=== PATIENT | male | born 1955 | race American Indian/Alaskan Native ===

== ENCOUNTER 2019-05-05 12:48 | Outpatient (CLI) | payer MEDICAID ==
--- NOTE | 2019-05-07 11:13 | XRay Report ---
CHEST 2 VIEWS INDICATION / CLINICAL INFORMATION: COUGH. COMPARISON: None available. FINDINGS: SUPPORT DEVICES: None. HEART / MEDIASTINUM: No significant abnormality. LUNGS / PLEURA: Changes of COPD No pneumothorax. ADDITIONAL FINDINGS: No significant additional findings. IMPRESSION: Changes of COPD. No acute pulmonary or pleural abnormality Signer Name: Torey Harris MD FACR Signed: 05/07/2019 11:08 AM Workstation Name: [id number]
== END 2019-05-05 12:49 | disposition home or self-care (01) ==
LOC: XRAY 12:48
PROVIDERS: ATTEND Psychiatry & Neurology Psychiatry
DX: Z86.15 Personal history of latent tuberculosis infection (principal)
CPT/HCPCS: 71046

== ENCOUNTER 2019-06-17 16:35 | Emergency (ER) | payer MEDICARE ==
--- NOTE | 2019-06-17 16:50 | Event Note ---
ED Screening Note ED Screening Note: Mr. Reeves presents with "hearing voices and suicidal thoughts." homeless hx of schizophrenia This initial assessment/diagnostic orders/clinical plan/treatment(s) is/are subject to change based on patients health status, clinical progression and re- assessment by fellow clinical providers in the ED. Further treatment and workup at subsequent clinical providers discretion. Patient/guardian urged not to elope from the ED as their condition may be serious if not clinically assessed and managed. Initial orders include: labs MH consult
[2019-06-17 17:13] LABS: Basophils # (Auto) 0.1 K/mm3 (0.0-0.1); Basophils % (Auto) 0.6 % (0.0-1.8); Eosinophils # (Auto) 0.1 K/mm3 (0.0-0.4); Eosinophils % (Auto) 0.8 % (0.0-4.3); Hematocrit 42.2 % (35.5-45.6); Hemoglobin 14.3 gm/dl (11.8-15.2); Lymphocytes # (Auto) 3.1 K/mm3 (1.2-5.4); Lymphocytes % (Auto) 29.6 % (13.4-35.0); Mean Corpuscular HGB Conc 34 % (32-34); Mean Corpuscular Volume 106 fl (84-94); Monocytes # (Auto) 0.8 K/mm3 (0.0-0.8); Monocytes % (Auto) 7.8 % (0.0-7.3); Platelet Count 325 K/mm3 (140-440); Red Cell Distribution Width 12.1 % (13.2-15.2)
[2019-06-17 17:39] LABS: Alanine Aminotransferase 12 units/L (7-56); Albumin 4.8 g/dL (3.9-5); BUN/Creatinine Ratio 11; Blood Urea Nitrogen 13 mg/dL (9-20); Calcium 9.9 mg/dL (8.4-10.2); Hemolysis Index 7
[2019-06-17 18:40] LABS: Bilirubin,Urine NEG (Negative); Blood,Urine SM (Negative); Color,Urine Yellow (Yellow); Hyaline Casts,Urine 1 /LPF; Protein,Urine <15 mg/dL mg/dL (Negative); Urobilinogen,Urine < 2.0 mg/dL (<2.0)
[2019-06-17 18:47] LABS: Amphetamine Screen,Urine PRESUMPTIVE NEGATIVE; Benzodiazepines Screen,Urine PRESUMPTIVE NEGATIVE; Cannabinoid Screen,Urine PRESUMPTIVE NEGATIVE; Cocaine Screen,Urine PRESUMPTIVE NEGATIVE; Methadone Screen,Urine PRESUMPTIVE NEGATIVE; Opiate Screen,Urine PRESUMPTIVE NEGATIVE
--- NOTE | 2019-06-17 19:27 | Emergency Department Report ---
ED General Adult HPI - General Chief complaint: Psych Stated complaint: THOUGHTS OF HURT MYSELF Time Seen by Provider: 06/17/19 16:49 Source: patient Mode of arrival: Ambulatory Limitations: No Limitations - History of Present Illness Initial comments: The patient presents to the emergency department with a chief complaint of auditory hallucinations and suicidal ideation. Patient states she has a history of schizophrenia and reports the voices are getting intolerable. Patient states the voices are telling him to harm himself. Patient states that life stresses have really increased. Patient states although he suicidal he does not have a plan. Patient does endorse that he is taking his psychiatric medications -: unknown Severity scale (0 -10): 0 Consistency: constant Improves with: none Worsens with: none Associated Symptoms: denies other symptoms Treatments Prior to Arrival: none - Related Data Home Medications Medication Instructions Recorded Confirmed Last Taken Benztropine [Cogentin] 1 mg PO QDAY 06/17/19 06/17/19 Unknown Citalopram [Celexa] 40 mg PO QDAY 06/17/19 06/17/19 Unknown Lisinopril [Zestril] 10 mg PO QDAY 06/17/19 06/17/19 Unknown Mirtazapine [Remeron 15mg TAB] 15 mg PO QHS 06/17/19 06/17/19 Unknown QUEtiapine [SEROquel] 300 mg PO QHS 06/17/19 06/17/19 Unknown risperiDONE [RisperDAL] 2 mg PO BID 06/17/19 06/17/19 Unknown Allergies Allergy/AdvReac Type Severity Reaction Status Date / Time No Known Allergies Allergy Unverified 05/05/19 12:48 ED Review of Systems ROS: Stated complaint: THOUGHTS OF HURT MYSELF Other details as noted in HPI Comment: All other systems reviewed and negative Constitutional: denies: chills, fever Eyes: denies: eye pain, eye discharge, vision change ENT: denies: ear pain, throat pain Respiratory: denies: cough, shortness of breath, wheezing Cardiovascular: denies: chest pain, palpitations Endocrine: no symptoms reported Gastrointestinal: denies: abdominal pain, nausea, diarrhea Genitourinary: denies: urgency, dysuria Musculoskeletal: denies: back pain, joint swelling, arthralgia Skin: denies: rash, lesions Neurological: denies: headache, weakness, paresthesias Psychiatric: auditory hallucinations, suicidal thoughts. denies: anxiety, depression, visual hallucinations, homicidal thoughts Hematological/Lymphatic: denies: easy bleeding, easy bruising ED Past Medical Hx - Past Medical History Previous Medical History?: Yes Hx Hypertension: Yes Hx Psychiatric Treatment: Yes - Surgical History Past Surgical History?: Yes Additional Surgical History: foot surgery. neck surgery - Social History Smoking Status: Current Every Day Smoker Substance Use Type: Alcohol, Cocaine - Medications Home Medications: Home Medications Medication Instructions Recorded Confirmed Last Taken Type Benztropine [Cogentin] 1 mg PO QDAY 06/17/19 06/17/19 Unknown History Citalopram [Celexa] 40 mg PO QDAY 06/17/19 06/17/19 Unknown History Lisinopril [Zestril] 10 mg PO QDAY 06/17/19 06/17/19 Unknown History Mirtazapine [Remeron 15mg TAB] 15 mg PO QHS 06/17/19 06/17/19 Unknown History QUEtiapine [SEROquel] 300 mg PO QHS 06/17/19 06/17/19 Unknown History risperiDONE [RisperDAL] 2 mg PO BID 06/17/19 06/17/19 Unknown History ED Physical Exam - General Limitations: No Limitations General appearance: alert, in no apparent distress - Head Head exam: Present: atraumatic, normocephalic - Eye Eye exam: Present: normal appearance, PERRL, EOMI - ENT ENT exam: Present: mucous membranes moist - Neck Neck exam: Present: normal inspection - Respiratory Respiratory exam: Present: normal lung sounds bilaterally. Absent: respiratory distress - Cardiovascular Cardiovascular Exam: Present: regular rate, normal rhythm. Absent: systolic murmur, diastolic murmur, rubs, gallop - GI/Abdominal GI/Abdominal exam: Present: soft, normal bowel sounds. Absent: distended, tenderness - Rectal Rectal exam: Present: deferred - Extremities Exam Extremities exam: Present: normal inspection - Back Exam Back exam: Present: normal inspection - Neurological Exam Neurological exam: Present: alert, oriented X3, CN II-XII intact. Absent: motor sensory deficit - Psychiatric Psychiatric exam: Present: normal affect, normal mood - Skin Skin exam: Present: warm, dry, intact, normal color. Absent: rash ED Course Vital Signs 06/17/19 06/17/19 16:49 20:57 Temperature 97.5 F L 98.0 F Pulse Rate 124 H 94 H Respiratory 18 18 Rate Blood Pressure 188/96 Blood Pressure 153/83 [Left] O2 Sat by Pulse 99 99 Oximetry ED Medical Decision Making - Lab Data Result diagrams: 06/17/19 16:59 06/17/19 16:59 Lab Results 06/17/19 06/17/19 06/17/19 Range/Units 16:59 16:59 16:59 WBC 10.4 (4.5-11.0) K/mm3 RBC 4.00 (3.65-5.03) M/mm3 Hgb 14.3 (11.8-15.2) gm/dl Hct 42.2 (35.5-45.6) % MCV 106 H (84-94) fl MCH 36 H (28-32) pg MCHC 34 (32-34) % RDW 12.1 L (13.2-15.2) % Plt Count 325 (140-440) K/mm3 Lymph % (Auto) 29.6 (13.4-35.0) % [place] % (Auto) 7.8 H (0.0-7.3) % Eos % (Auto) 0.8 (0.0-4.3) % Baso % (Auto) 0.6 (0.0-1.8) % Lymph # 3.1 (1.2-5.4) K/mm3 [place] # 0.8 (0.0-0.8) K/mm3 Eos # 0.1 (0.0-0.4) K/mm3 Baso # 0.1 (0.0-0.1) K/mm3 Seg Neutrophils % 61.2 (40.0-70.0) % Seg Neutrophils # 6.4 (1.8-7.7) K/mm3 Sodium 139 (137-145) mmol/L Potassium 4.2 (3.6-5.0) mmol/L Chloride 98.2 (98-107) mmol/L Carbon Dioxide 23 (22-30) mmol/L Anion Gap 22 mmol/L BUN 13 (9-20) mg/dL Creatinine 1.2 (0.8-1.5) mg/dL Estimated GFR > 60 ml/min BUN/Creatinine Ratio 11 % Glucose 108 H (75-100) mg/dL Calcium 9.9 (8.4-10.2) mg/dL Total Bilirubin 0.50 (0.1-1.2) mg/dL AST 22 (5-40) units/L ALT 12 (7-56) units/L Alkaline Phosphatase 91 (35-129) units/L Total Protein 8.6 H (6.3-8.2) g/dL Albumin 4.8 (3.9-5) g/dL Albumin/Globulin Ratio 1.3 % Urine Color (Yellow) Urine Turbidity (Clear) Urine pH (5.0-7.0) Ur Specific [place] (1.003-1.030) Urine Protein (Negative) mg/dL Urine Glucose (UA) (Negative) mg/dL Urine Ketones (Negative) mg/dL Urine Blood (Negative) Urine Nitrite (Negative) Urine Bilirubin (Negative) Urine Urobilinogen (<2.0) mg/dL Ur Leukocyte Esterase (Negative) Urine WBC (Auto) (0.0-6.0) /HPF Urine RBC (Auto) (0.0-6.0) /HPF U Epithel Cells (Auto) (0-13.0) /HPF Hyaline Casts /LPF Salicylates < 0.3 L (2.8-20.0) mg/dL Urine Opiates Screen Urine Methadone Screen Acetaminophen (10.0-30.0) ug/mL Ur Barbiturates Screen Ur Phencyclidine Scrn Ur Amphetamines Screen U Benzodiazepines Scrn Urine Cocaine Screen U Marijuana (THC) Screen Drugs of Abuse Note Plasma/Serum Alcohol (0-0.07) % 06/17/19 06/17/19 06/17/19 Range/Units 16:59 16:59 Unknown WBC (4.5-11.0) K/mm3 RBC (3.65-5.03) M/mm3 Hgb (11.8-15.2) gm/dl Hct (35.5-45.6) % MCV (84-94) fl MCH (28-32) pg MCHC (32-34) % RDW (13.2-15.2) % Plt Count (140-440) K/mm3 Lymph % (Auto) (13.4-35.0) % [place] % (Auto) (0.0-7.3) % Eos % (Auto) (0.0-4.3) % Baso % (Auto) (0.0-1.8) % Lymph # (1.2-5.4) K/mm3 [place] # (0.0-0.8) K/mm3 Eos # (0.0-0.4) K/mm3 Baso # (0.0-0.1) K/mm3 Seg Neutrophils % (40.0-70.0) % Seg Neutrophils # (1.8-7.7) K/mm3 Sodium (137-145) mmol/L Potassium (3.6-5.0) mmol/L Chloride (98-107) mmol/L Carbon Dioxide (22-30) mmol/L Anion Gap mmol/L BUN (9-20) mg/dL Creatinine (0.8-1.5) mg/dL Estimated GFR ml/min BUN/Creatinine Ratio % Glucose (75-100) mg/dL Calcium (8.4-10.2) mg/dL Total Bilirubin (0.1-1.2) mg/dL AST (5-40) units/L ALT (7-56) units/L Alkaline Phosphatase (35-129) units/L Total Protein (6.3-8.2) g/dL Albumin (3.9-5) g/dL Albumin/Globulin Ratio % Urine Color Yellow (Yellow) Urine Turbidity Clear (Clear) Urine pH 6.0 (5.0-7.0) Ur Specific [place] 1.011 (1.003-1.030) Urine Protein <15 mg/dl (Negative) mg/dL Urine Glucose (UA) Neg (Negative) mg/dL Urine Ketones Neg (Negative) mg/dL Urine Blood Sm (Negative) Urine Nitrite Neg (Negative) Urine Bilirubin Neg (Negative) Urine Urobilinogen < 2.0 (<2.0) mg/dL Ur Leukocyte Esterase Neg (Negative) Urine WBC (Auto) 1.0 (0.0-6.0) /HPF Urine RBC (Auto) 2.0 (0.0-6.0) /HPF U Epithel Cells (Auto) < 1.0 (0-13.0) /HPF Hyaline Casts 1 /LPF Salicylates (2.8-20.0) mg/dL Urine Opiates Screen Urine Methadone Screen Acetaminophen < 5.0 L (10.0-30.0) ug/mL Ur Barbiturates Screen Ur Phencyclidine Scrn Ur Amphetamines Screen U Benzodiazepines Scrn Urine Cocaine Screen U Marijuana (THC) Screen Drugs of Abuse Note Plasma/Serum Alcohol < 0.01 (0-0.07) % 06/17/19 Range/Units Unknown WBC (4.5-11.0) K/mm3 RBC (3.65-5.03) M/mm3 Hgb (11.8-15.2) gm/dl Hct (35.5-45.6) % MCV (84-94) fl MCH (28-32) pg MCHC (32-34) % RDW (13.2-15.2) % Plt Count (140-440) K/mm3 Lymph % (Auto) (13.4-35.0) % [place] % (Auto) (0.0-7.3) % Eos % (Auto) (0.0-4.3) % Baso % (Auto) (0.0-1.8) % Lymph # (1.2-5.4) K/mm3 [place] # (0.0-0.8) K/mm3 Eos # (0.0-0.4) K/mm3 Baso # (0.0-0.1) K/mm3 Seg Neutrophils % (40.0-70.0) % Seg Neutrophils # (1.8-7.7) K/mm3 Sodium (137-145) mmol/L Potassium (3.6-5.0) mmol/L Chloride (98-107) mmol/L Carbon Dioxide (22-30) mmol/L Anion Gap mmol/L BUN (9-20) mg/dL Creatinine (0.8-1.5) mg/dL Estimated GFR ml/min BUN/Creatinine Ratio % Glucose (75-100) mg/dL Calcium (8.4-10.2) mg/dL Total Bilirubin (0.1-1.2) mg/dL AST (5-40) units/L ALT (7-56) units/L Alkaline Phosphatase (35-129) units/L Total Protein (6.3-8.2) g/dL Albumin (3.9-5) g/dL Albumin/Globulin Ratio % Urine Color (Yellow) Urine Turbidity (Clear) Urine pH (5.0-7.0) Ur Specific [place] (1.003-1.030) Urine Protein (Negative) mg/dL Urine Glucose (UA) (Negative) mg/dL Urine Ketones (Negative) mg/dL Urine Blood (Negative) Urine Nitrite (Negative) Urine Bilirubin (Negative) Urine Urobilinogen (<2.0) mg/dL Ur Leukocyte Esterase (Negative) Urine WBC (Auto) (0.0-6.0) /HPF Urine RBC (Auto) (0.0-6.0) /HPF U Epithel Cells (Auto) (0-13.0) /HPF Hyaline Casts /LPF Salicylates (2.8-20.0) mg/dL Urine Opiates Screen Presumptive negative Urine Methadone Screen Presumptive negative Acetaminophen (10.0-30.0) ug/mL Ur Barbiturates Screen Presumptive negative Ur Phencyclidine Scrn Presumptive negative Ur Amphetamines Screen Presumptive negative U Benzodiazepines Scrn Presumptive negative Urine Cocaine Screen Presumptive negative U Marijuana (THC) Screen Presumptive negative Drugs of Abuse Note Disclamer Plasma/Serum Alcohol (0-0.07) % - Medical Decision Making 1013 applied Medically cleared Awaiting psych assessment Critical care attestation.: If time is entered above; I have spent that time in minutes in the direct care of this critically ill patient, excluding procedure time. ED Disposition Clinical Impression: Suicidal ideation Disposition: [id number]/TX-[id number] PSY HOSP/PSY UNIT Is pt being admited?: No Does the pt Need Aspirin: No Condition: Stable
[2019-06-18 08:11] VITALS: BP 117/65
== END 2019-06-18 16:43 ==
LOC: ED 16:35
DX: F25.8 Other schizoaffective disorders (principal); I10 Essential (primary) hypertension; F17.200 Nicotine dependence, unspecified, uncomplicated; F14.10 Cocaine abuse, uncomplicated; Z59.0 Homelessness; Z98.890 Other specified postprocedural states; Z79.899 Other long term (current) drug therapy
CPT/HCPCS: 36415; 80053; 80307; 80320; 81001; 85025; G0480

== ENCOUNTER 2019-06-18 13:41 | Inpatient (IN) | payer MEDICARE ==
[2019-06-18 19:28] LABS: Basophils # (Auto) 0.1 K/mm3 (0.0-0.1); Basophils % (Auto) 0.8 % (0.0-1.8); Eosinophils # (Auto) 0.2 K/mm3 (0.0-0.4); Eosinophils % (Auto) 2.2 % (0.0-4.3); Hematocrit 41.8 % (35.5-45.6); Hemoglobin 14.1 gm/dl (11.8-15.2); Lymphocytes # (Auto) 3.1 K/mm3 (1.2-5.4); Lymphocytes % (Auto) 38.5 % (13.4-35.0); Mean Corpuscular HGB Conc 34 % (32-34); Mean Corpuscular Volume 106 fl (84-94); Monocytes # (Auto) 0.8 K/mm3 (0.0-0.8); Monocytes % (Auto) 9.5 % (0.0-7.3); Platelet Count 299 K/mm3 (140-440); Red Blood Count 3.93 M/mm3 (3.65-5.03); Red Cell Distribution Width 12.8 % (13.2-15.2)
[2019-06-18 19:57] LABS: Alanine Aminotransferase 15 units/L (7-56); Albumin 4.1 g/dL (3.9-5); BUN/Creatinine Ratio 17; Blood Urea Nitrogen 19 mg/dL (9-20); Calcium 9.5 mg/dL (8.4-10.2); Chol/HDL Ratio 4.45 %; HDL Cholesterol 40 mg/dL (40-59); Hemolysis Index 6; LDL Cholesterol,Direct 127 mg/dL (50-130)
[2019-06-18] MEDS: risperiDONE 1 MG TAB PO SCH (21:22)
[2019-06-18] MEDS ORDERED: MIRTAZAPINE 15 MG TAB PO SCH (22:00)
[2019-06-18] MEDS ORDERED: NON-FORMULARY EACH (Risperidone [Risperdal] 2 MG) PO SCH (22:00)
[2019-06-18] MEDS ORDERED: QUEtiapine 200 MG TAB PO SCH (22:00)
[2019-06-19] MEDS: CITALOPRAM 20 MG TAB PO SCH (10:10)
[2019-06-19] MEDS: BENZTROPINE 1 MG TAB PO SCH (10:10)
[2019-06-19] MEDS: LISINOPRIL 10 MG TAB PO SCH (10:11)
[2019-06-19] MEDS: risperiDONE 1 MG TAB PO SCH ×2 (10:11→21:04)
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
--- NOTE | 2019-06-19 10:32 | Consultation ---
History of Present Illness - Reason for Consult Consult date: 06/19/19 medical consult Requesting physician: SASKIA CONTRERAS - History of Present Illness 64-year-old male patient with significant past medical history of hypertension or difficulty hallucination suicidal ideation Was admitted through emergency room to inpatient psych unit for further evaluation and management. Hospitalist service was requested medical consultation medical management When I evaluated the patient patient denied any chest pain or shortness of breath Denies any headache or dizziness, Denies any nausea vomiting or abdominal pain Patient reports that sometimes he is depressed and has some suicidal thoughts Past History Past Medical History: hypertension Past Surgical History: Other (foot surgery and neck surgery) Social history: smoking, alcohol abuse, other (recreational drug use) Family history: no significant family history Medications and Allergies Allergies Allergy/AdvReac Type Severity Reaction Status Date / Time No Known Allergies Allergy Verified 06/18/19 21:16 Home Medications Medication Instructions Recorded Confirmed Last Taken Type Benztropine [Cogentin] 1 mg PO QDAY 06/17/19 06/18/19 Unknown History Citalopram [Celexa] 40 mg PO QDAY 06/17/19 06/18/19 Unknown History Lisinopril [Zestril] 10 mg PO QDAY 06/17/19 06/18/19 Unknown History Mirtazapine [Remeron 15mg TAB] 15 mg PO QHS 06/17/19 06/18/19 Unknown History QUEtiapine [SEROquel] 300 mg PO QHS 06/17/19 06/18/19 Unknown History risperiDONE [RisperDAL] 2 mg PO BID 06/17/19 06/18/19 Unknown History Active Meds: Active Medications Benztropine Mesylate (Cogentin) 1 mg PO QDAY [facility] Last Admin: 06/19/19 10:10 Dose: 1 mg Documented by: Citalopram Hydrobromide (Celexa) 40 mg PO QDAY [facility] Last Admin: 06/19/19 10:10 Dose: 40 mg Documented by: Lisinopril (Zestril) 10 mg PO QDAY [facility] Last Admin: 06/19/19 10:11 Dose: 10 mg Documented by: Mirtazapine (Remeron) 15 mg PO QHS [facility] Last Admin: 06/18/19 21:22 Dose: 15 mg Documented by: Quetiapine Fumarate (Seroquel) 300 mg PO QHS [facility] Last Admin: 06/18/19 21:22 Dose: 300 mg Documented by: Risperidone (Risperdal) 2 mg PO BID [facility] Last Admin: 06/19/19 10:11 Dose: 2 mg Documented by: Review of Systems Constitutional: no weight loss, no weight gain, no fever, no chills Ears, nose, mouth and throat: no nasal congestion, no nasal discharge Cardiovascular: no chest pain, no palpitations, no lightheadedness Respiratory: no cough, no hemoptysis Gastrointestinal: no abdominal pain, no nausea, no vomiting Genitourinary Male: no hematuria, no flank pain Musculoskeletal: no myalgias, no arthritis Integumentary: no rash, no lesions Neurological: no weakness, no numbness Psychiatric: suicidal ideation, hallucinations, depression, no anxiety Endocrine: no cold intolerance, no heat intolerance Hematologic/Lymphatic: no easy bruising, no easy bleeding Allergic/Immunologic: no urticaria, no allergic rhinitis Exam - Constitutional Vitals: Temp Pulse Resp BP Pulse Ox 97.3 F L 73 18 113/64 100 06/19/19 09:25 06/19/19 10:11 06/19/19 09:25 06/19/19 10:11 06/19/19 09:25 General appearance: Present: no acute distress, well-nourished - EENT Eyes: Present: PERRL, EOM intact - Neck Neck: Present: supple, normal ROM - Respiratory Respiratory effort: normal Respiratory: bilateral: diminished, negative: rales, rhonchi, wheezing - Cardiovascular Rhythm: regular Heart Sounds: Present: S1 & S2 - Extremities Extremities: no ischemia, No edema - Abdominal General gastrointestinal: Present: soft, non-tender, non-distended, normal bowel sounds - Integumentary Integumentary: Present: clear, warm - Musculoskeletal Musculoskeletal: strength equal bilaterally - Psychiatric Psychiatric: depressed - Neurologic Neurologic: CNII-XII intact, moves all extremities Results - Labs CBC & Chem 7: 06/18/19 19:15 06/18/19 19:15 Labs: Abnormal lab results 06/18/19 06/18/19 Range/Units 19:15 19:15 MCV 106 H (84-94) fl MCH 36 H (28-32) pg RDW 12.8 L (13.2-15.2) % Lymph % (Auto) 38.5 H (13.4-35.0) % [place] % (Auto) 9.5 H (0.0-7.3) % Glucose 120 H (75-100) mg/dL Assessment and Plan --Suicidal thoughts and ideation; Management per psych --Hypertension; moderate controlled Continue lisinopril --Ongoing tobacco use; Smoking cessation counseling done Nicotine patch as needed --Recreational drug use; strongly advised to quit Recreational drugs, verbalized understanding --DVT prophylaxis; facility spelled testing Monitor closely and adjust the management as needed Thank you for this consultation, we will follow the patient along with you As-needed basis. Plan of care reviewed with the patient and his nurse
[2019-06-19] MEDS ORDERED: QUEtiapine 200 MG TAB PO SCH (10:42)
[2019-06-19] MEDS: QUEtiapine 200 MG TAB PO SCH (21:05)
[2019-06-19] MEDS: MIRTAZAPINE 15 MG TAB PO SCH (21:06)
--- NOTE | 2019-06-20 08:10 | Progress Note ---
Subjective Date of service: 06/20/19 Subjective Comment: I interviewed the patient this morning. Medical records reviewed and patient's progress was discussed with unit staff. per chart Patient slept most of the night. Assistance to bathroom x2. Compliant with medications and ate 100% of snack. No Hi/Si ideation noted. Staff will continue to monitor for safety. In my interview with the patient this morning, the patient was in bed asleep easily arose. The patient is alert and oriented 3. He is dressed appropr iately for the occasional, the patient maintained minimal eye contact. The patient reported that he is still unable to sleep he states I sleep on and off when asked why the patient said he does not know. He does report hearing voices mainly mumbling, he denies visual hallucinations. The patient reports that he still mildly depressed which is better than yesterday. Patient states, "I'm really unable to explain how I feel ,I just feel down",when asked to explain patient's states, I need to think about it.The patient mood is incongruent with his affect. Reason for continuing inpatient treatment; depression/ auditory hallucination Review of Symptoms: Constitutional: Negative for weight loss ENT: Negative for stridor Respiratory: Negative for cough or hemoptysis All other systems reviewed and are negative MSE Appearance: Wearing appropriate clothing. Good hygiene Behavior: Pleasant and cooperative. Mood: "feeling down" Affect: incongruent with mood Thought Process: Goal directed Speech: Normal rate. Thought Content Harmfulness Denies SI/HI Hallucinations: auditory Delusions: none elicited Consciousness: alert. Cognition/Memory: normal. Insight/Judgment: Limited. Diagnoses: schizophrenia Treatment Plan Due to the psychiatric conditions and treatment listed in the Assessment and Plan - the patient requires continued hospitalization. Will continue inpatient treatment to allow for medication adjustment and monitoring. Will continue q15 min safety checks. Will encourage the use of environmental modifications and non-pharmacologic approaches for the management of behavioral and psychological symptoms. Medication adjustment made today: NONE Will continue current psych medications Monitor for medication side effects. The patient will continue on medications for physical illnesses, and Hospitalist will closely monitor these Continue intensive physical and occupational therapies. Monitor patient's mood, sleep, appetite, and behavior closely. Encourage patient to participate in individual and group therapeutic sessions on the ropre. Will provide a safe and therapeutic environment for patient. Estimated length of stay --- day Medications and Allergies Allergies Allergy/AdvReac Type Severity Reaction Status Date / Time No Known Allergies Allergy Verified 06/18/19 21:16 Home Medications Medication Instructions Recorded Confirmed Last Taken Type Benztropine [Cogentin] 1 mg PO QDAY 06/17/19 06/18/19 Unknown History Citalopram [Celexa] 40 mg PO QDAY 06/17/19 06/18/19 Unknown History Lisinopril [Zestril] 10 mg PO QDAY 06/17/19 06/18/19 Unknown History Mirtazapine [Remeron 15mg TAB] 15 mg PO QHS 06/17/19 06/18/19 Unknown History QUEtiapine [SEROquel] 300 mg PO QHS 06/17/19 06/18/19 Unknown History risperiDONE [RisperDAL] 2 mg PO BID 06/17/19 06/18/19 Unknown History Active Meds: Active Medications Benztropine Mesylate (Cogentin) 1 mg PO QDAY [facility] Last Admin: 06/19/19 10:10 Dose: 1 mg Documented by: Citalopram Hydrobromide (Celexa) 40 mg PO QDAY [facility] Last Admin: 06/19/19 10:10 Dose: 40 mg Documented by: Lisinopril (Zestril) 10 mg PO QDAY [facility] Last Admin: 06/19/19 10:11 Dose: 10 mg Documented by: Mirtazapine (Remeron) 7.5 mg PO QHS [facility] Last Admin: 06/19/19 21:06 Dose: 7.5 mg Documented by: [facility]apine [facility] Admin: 06/19/19 21:05 Dose: 300 mg Documented by: Risperidone (Risperdal) 2 mg PO BID [facility] Last Admin: 06/19/19 21:04 Dose: 2 mg Documented by: Results - Results Labs/Vitals: Laboratory Last Values WBC 8.0 K/mm3 (4.5-11.0) 06/18/19 19:15 RBC 3.93 M/mm3 (3.65-5.03) 06/18/19 19:15 Hgb 14.1 gm/dl (11.8-15.2) 06/18/19 19:15 Hct 41.8 % (35.5-45.6) 06/18/19 19:15 MCV 106 fl (84-94) H 06/18/19 19:15 MCH 36 pg (28-32) H 06/18/19 19:15 MCHC 34 % (32-34) 06/18/19 19:15 RDW 12.8 % (13.2-15.2) L 06/18/19 19:15 Plt Count 299 K/mm3 (140-440) 06/18/19 19:15 Lymph % (Auto) 38.5 % (13.4-35.0) H 06/18/19 19:15 [place] % (Auto) 9.5 % (0.0-7.3) H 06/18/19 19:15 Eos % (Auto) 2.2 % (0.0-4.3) 06/18/19 19:15 Baso % (Auto) 0.8 % (0.0-1.8) 06/18/19 19:15 Lymph # 3.1 K/mm3 (1.2-5.4) 06/18/19 19:15 [place] # 0.8 K/mm3 (0.0-0.8) 06/18/19 19:15 Eos # 0.2 K/mm3 (0.0-0.4) 06/18/19 19:15 Baso # 0.1 K/mm3 (0.0-0.1) 06/18/19 19:15 Seg Neutrophils % 49.0 % (40.0-70.0) 06/18/19 19:15 Seg Neutrophils # 3.9 K/mm3 (1.8-7.7) 06/18/19 19:15 Sodium 138 mmol/L (137-145) 06/18/19 19:15 Potassium 4.5 mmol/L (3.6-5.0) 06/18/19 19:15 Chloride 101.6 mmol/L (98-107) 06/18/19 19:15 Carbon Dioxide 22 mmol/L (22-30) 06/18/19 19:15 Anion Gap 19 mmol/L 06/18/19 19:15 BUN 19 mg/dL (9-20) 06/18/19 19:15 Creatinine 1.1 mg/dL (0.8-1.5) 06/18/19 19:15 Estimated GFR > 60 ml/min 06/18/19 19:15 BUN/Creatinine Ratio 17 % 06/18/19 19:15 Glucose 120 mg/dL (75-100) H 06/18/19 19:15 Hemoglobin A1c 5.0 % (4-6) 06/18/19 19:15 Calcium 9.5 mg/dL (8.4-10.2) 06/18/19 19:15 Total Bilirubin 0.20 mg/dL (0.1-1.2) 06/18/19 19:15 AST 19 units/L (5-40) 06/18/19 19:15 ALT 15 units/L (7-56) 06/18/19 19:15 Alkaline Phosphatase 84 units/L (35-129) 06/18/19 19:15 Total Protein 7.8 g/dL (6.3-8.2) 06/18/19 19:15 Albumin 4.1 g/dL (3.9-5) 06/18/19 19:15 Albumin/Globulin Ratio 1.1 % 06/18/19 19:15 Triglycerides 121 mg/dL (2-149) 06/18/19 19:15 Cholesterol 178 mg/dL (50-199) 06/18/19 19:15 LDL Cholesterol Direct 127 mg/dL (50-130) 06/18/19 19:15 HDL Cholesterol 40 mg/dL (40-59) 06/18/19 19:15 Cholesterol/HDL Ratio 4.45 % 06/18/19 19:15 Last Vital Signs Temp 98.1 F 06/19/19 20:00 Pulse 92 H 06/19/19 20:00 Resp 18 06/19/19 20:00 BP 105/50 06/19/19 20:00 Pulse Ox 92 06/19/19 20:00
[2019-06-20] MEDS: CITALOPRAM 20 MG TAB PO SCH (10:12)
[2019-06-20] MEDS: risperiDONE 1 MG TAB PO SCH ×2 (10:12→21:14)
[2019-06-20] MEDS: BENZTROPINE 1 MG TAB PO SCH (10:12)
[2019-06-20] MEDS: LISINOPRIL 10 MG TAB PO SCH (10:13)
[2019-06-20] MEDS: ACETAMINOPHEN 325 MG TAB PO PRN (17:30)
[2019-06-20] MEDS: QUEtiapine 200 MG TAB PO SCH (21:12)
[2019-06-20] MEDS: MIRTAZAPINE 15 MG TAB PO SCH (21:15)
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
[2019-06-21] MEDS: risperiDONE 1 MG TAB PO SCH ×2 (10:34→21:30)
[2019-06-21] MEDS: CITALOPRAM 20 MG TAB PO SCH (10:34)
[2019-06-21] MEDS: BENZTROPINE 1 MG TAB PO SCH (10:34)
[2019-06-21] MEDS: LISINOPRIL 10 MG TAB PO SCH (10:35)
[2019-06-21] MEDS: ACETAMINOPHEN 325 MG TAB PO PRN (19:50)
[2019-06-21] MEDS: QUEtiapine 200 MG TAB PO SCH (21:31)
[2019-06-21] MEDS: MIRTAZAPINE 15 MG TAB PO SCH (21:31)
[2019-06-21] MEDS ORDERED: PRAZOSIN 1 MG CAP PO SCH (22:00)
--- NOTE | 2019-06-22 09:30 | Discharge Summary ---
Providers - Providers Date of Admission: 06/18/19 16:40 Date of discharge: 06/22/19 Attending physician: SASKIA CONTRERAS MD 06/18/19 13:59 Consult to Physician [CONS] Routine Comment: Consulting Provider: VINCENZO NEWBERRY Physician Instructions: Reason For Exam: manage medical conditions Primary care physician: CELL OPERATOR Hospitalization Condition: Stable Disposition: DC/[place]-70 ANOTHER [facility] Allergies/Adverse Reactions: Allergies No Known Allergies Allergy (Verified 06/18/19 21:16) Vital Signs: Last Vital Signs Temp 97.6 F 06/21/19 19:54 Pulse 78 06/21/19 21:29 Resp 18 06/21/19 19:54 BP 149/73 06/21/19 21:29 Pulse Ox 97 06/21/19 19:54 Last Lab: Laboratory Last Values WBC 8.0 K/mm3 (4.5-11.0) 06/18/19 19:15 RBC 3.93 M/mm3 (3.65-5.03) 06/18/19 19:15 Hgb 14.1 gm/dl (11.8-15.2) 06/18/19 19:15 Hct 41.8 % (35.5-45.6) 06/18/19 19:15 MCV 106 fl (84-94) H 06/18/19 19:15 MCH 36 pg (28-32) H 06/18/19 19:15 MCHC 34 % (32-34) 06/18/19 19:15 RDW 12.8 % (13.2-15.2) L 06/18/19 19:15 Plt Count 299 K/mm3 (140-440) 06/18/19 19:15 Lymph % (Auto) 38.5 % (13.4-35.0) H 06/18/19 19:15 [place] % (Auto) 9.5 % (0.0-7.3) H 06/18/19 19:15 Eos % (Auto) 2.2 % (0.0-4.3) 06/18/19 19:15 Baso % (Auto) 0.8 % (0.0-1.8) 06/18/19 19:15 Lymph # 3.1 K/mm3 (1.2-5.4) 06/18/19 19:15 [place] # 0.8 K/mm3 (0.0-0.8) 06/18/19 19:15 Eos # 0.2 K/mm3 (0.0-0.4) 06/18/19 19:15 Baso # 0.1 K/mm3 (0.0-0.1) 06/18/19 19:15 Seg Neutrophils % 49.0 % (40.0-70.0) 06/18/19 19:15 Seg Neutrophils # 3.9 K/mm3 (1.8-7.7) 06/18/19 19:15 Sodium 138 mmol/L (137-145) 06/18/19 19:15 Potassium 4.5 mmol/L (3.6-5.0) 06/18/19 19:15 Chloride 101.6 mmol/L (98-107) 06/18/19 19:15 Carbon Dioxide 22 mmol/L (22-30) 06/18/19 19:15 Anion Gap 19 mmol/L 06/18/19 19:15 BUN 19 mg/dL (9-20) 06/18/19 19:15 Creatinine 1.1 mg/dL (0.8-1.5) 06/18/19 19:15 Estimated GFR > 60 ml/min 06/18/19 19:15 BUN/Creatinine Ratio 17 % 06/18/19 19:15 Glucose 120 mg/dL (75-100) H 06/18/19 19:15 Hemoglobin A1c 5.0 % (4-6) 06/18/19 19:15 Calcium 9.5 mg/dL (8.4-10.2) 06/18/19 19:15 Total Bilirubin 0.20 mg/dL (0.1-1.2) 06/18/19 19:15 AST 19 units/L (5-40) 06/18/19 19:15 ALT 15 units/L (7-56) 06/18/19 19:15 Alkaline Phosphatase 84 units/L (35-129) 06/18/19 19:15 Total Protein 7.8 g/dL (6.3-8.2) 06/18/19 19:15 Albumin 4.1 g/dL (3.9-5) 06/18/19 19:15 Albumin/Globulin Ratio 1.1 % 01/30/20 19:15 Triglycerides 121 mg/dL (2-149) 06/18/19 19:15 Cholesterol 178 mg/dL (50-199) 06/18/19 19:15 LDL Cholesterol Direct 127 mg/dL (50-130) 06/18/19 19:15 HDL Cholesterol 40 mg/dL (40-59) 06/18/19 19:15 Cholesterol/HDL Ratio 4.45 % 06/18/19 19:15 Core Measure Documentation - Palliative Care Palliative Care/ Comfort Measures: Not Applicable - Core Measures Any of the following diagnoses?: none Exam - Constitutional Vitals: Temp Pulse Resp BP Pulse Ox 97.6 F 78 18 149/73 97 06/21/19 19:54 06/21/19 21:29 06/21/19 19:54 06/21/19 21:29 06/21/19 19:54 General appearance: Present: no acute distress, well-nourished - EENT Eyes: Present: PERRL, EOM intact ENT: hearing intact, clear oral mucosa - Neck Neck: Present: supple, normal ROM - Respiratory Respiratory effort: normal - Abdominal Male genitourinary: Present: normal - Integumentary Integumentary: Present: clear, warm, dry Plan Follow up with: PRIMARY CARE,MD [Primary Care Provider] - 7 Days Prescriptions: Prazosin 1 mg PO QHS #30 capsule Mirtazapine [Remeron 15mg TAB] 7.5 mg PO QHS #30 tablet QUEtiapine [SEROquel] 300 mg PO QHS #30 Citalopram [Celexa] 40 mg PO QDAY #30 Benztropine [Cogentin] 1 mg PO QDAY #30 risperiDONE [RisperDAL] 2 mg PO BID #30
[2019-06-22 09:56] VITALS: BP 121/66
[2019-06-22] MEDS: risperiDONE 1 MG TAB PO SCH (09:56)
[2019-06-22] MEDS: BENZTROPINE 1 MG TAB PO SCH (09:56)
[2019-06-22] MEDS: LISINOPRIL 10 MG TAB PO SCH (09:56)
[2019-06-22] MEDS: CITALOPRAM 20 MG TAB PO SCH (09:56)
--- NOTE | 2019-06-22 11:41 | XRay Report ---
CHEST 1 VIEW INDICATION: r/o TB. COMPARISON: 05/05/2019 FINDINGS: Support devices: None. Heart: Within normal limits. Lungs/Pleura: No acute air space or interstitial disease. Additional findings: None. IMPRESSION: No acute findings. Signer Name: Tyler Lewis Jr, MD Signed: 06/22/2019 11:36 AM Workstation Name: [id number]
== END 2019-06-22 14:03 | DRG 885 ==
LOC: UNDOADMIN 13:41 → 3A 13:41 → 5A 16:40
PROVIDERS: ADMIT Psychiatry & Neurology Psychiatry; ATTEND Psychiatry & Neurology Psychiatry
DX: F20.9 Schizophrenia, unspecified (principal); I10 Essential (primary) hypertension; F10.10 Alcohol abuse, uncomplicated; Y90.9 Presence of alcohol in blood, level not specified; Z59.0 Homelessness; Z79.899 Other long term (current) drug therapy
CPT/HCPCS: 36415; 71045; 80053; 80061; 83036; 85025; G0378

== ENCOUNTER 2021-06-20 05:28 | Emergency (ER) | payer MEDICARE ==
--- NOTE | 2021-06-20 07:27 | Emergency Department Report ---
HPI - General Chief Complaint: Psych Time Seen by Provider: 06/20/21 07:15 - HPI HPI: Room 12 The patient is a 66-year-old male present with a chief complaint of suicidal ideation. The patient states he is felt suicidal for the past 2 months. When asked if he is done anything to try to harm himself the patient replies yes by doing drugs and try to walk out in front of cars in traffic. Patient denies any history of trauma. ED Past Medical Hx - Past Medical History Hx Hypertension: Yes Hx Psychiatric Treatment: Yes (bipolar, schizophrenia) - Surgical History Past Surgical History?: Yes Additional Surgical History: foot surgery. neck surgery - Family History Family history: no significant - Social History Smoking Status: Current Every Day Smoker (1 pack/day) Substance Use Type: Alcohol (Occasional), Cocaine (Crack) - Medications Home Medications: Home Medications Medication Instructions Recorded Confirmed Last Taken Type Lisinopril [Zestril] 10 mg PO QDAY 06/17/19 06/18/19 Unknown History Benztropine [Cogentin] 1 mg PO QDAY #30 06/22/19 Unknown Rx Citalopram [Celexa] 40 mg PO QDAY #30 06/22/19 Unknown Rx Mirtazapine [Remeron 15mg TAB] 7.5 mg PO QHS #30 tablet 06/22/19 Unknown Rx Prazosin 1 mg PO QHS #30 capsule 06/22/19 Unknown Rx QUEtiapine [SEROquel] 300 mg PO QHS #30 06/22/19 Unknown Rx risperiDONE [RisperDAL] 2 mg PO BID #30 06/22/19 Unknown Rx ED Review of Systems ROS: Stated complaint: SUICIDAL Other details as noted in HPI Constitutional: no symptoms reported Eyes: denies: eye pain ENT: denies: throat pain Respiratory: no symptoms reported Cardiovascular: denies: chest pain Endocrine: no symptoms reported Gastrointestinal: denies: abdominal pain Genitourinary: denies: dysuria Musculoskeletal: denies: back pain Neurological: denies: headache Psychiatric: suicidal thoughts Physical Exam - Physical Exam Vital Signs: Vital Signs 06/20/21 05:37 Temperature 98.4 F Pulse Rate 95 H Respiratory 19 Rate Blood Pressure 137/85 O2 Sat by Pulse 96 Oximetry Physical Exam: GENERAL: The patient is well-developed well-nourished male lying on stretcher not appearing to be in acute distress. [] HEENT: Normocephalic. Atraumatic. Extraocular motions are intact. Patient has moist mucous membranes. NECK: Supple. Trachea midline CHEST/LUNGS: Clear to auscultation. There is no respiratory distress noted. HEART/CARDIOVASCULAR: Regular. There is no tachycardia. There is no gallop rub or murmur. ABDOMEN: Abdomen is soft, nontender. Patient has normal bowel sounds. There is no abdominal distention. SKIN: There is no rash. There is no edema. There is no diaphoresis. NEURO: The patient is awake, alert, and oriented. The patient is cooperative. The patient has no focal neurologic deficits. The patient has normal speech. GCS 15 MUSCULOSKELETAL:There is no evidence of acute injury. ED Course Vital Signs 06/20/21 05:37 Temperature 98.4 F Pulse Rate 95 H Respiratory 19 Rate Blood Pressure 137/85 O2 Sat by Pulse 96 Oximetry ED Medical Decision Making - Lab Data Result diagrams: 06/20/21 07:29 06/20/21 07:29 Laboratory Tests 06/20/21 06/20/21 06/20/21 05:55 05:55 07:29 WBC 8.9 RBC 4.08 Hgb 14.4 Hct 43.1 MCV 106 H MCH 35 H MCHC 33 RDW 13.0 L Plt Count 298 Lymph % (Auto) 24.6 Sharp % (Auto) 9.1 H Eos % (Auto) 2.2 Baso % (Auto) 0.6 Lymph # (Auto) 2.2 Sharp # (Auto) 0.8 Eos # (Auto) 0.2 Baso # (Auto) 0.1 Seg Neutrophils % 63.5 Seg Neutrophils # 5.6 Sodium Potassium Chloride Carbon Dioxide Anion Gap BUN Creatinine Estimated GFR BUN/Creatinine Ratio Glucose Calcium Total Bilirubin AST ALT Alkaline Phosphatase Total Protein Albumin Albumin/Globulin Ratio Urine Color Yellow Urine Turbidity Clear Urine pH 5.0 Ur Specific [place] 1.020 Urine Protein 30 mg/dl Urine Glucose (UA) Neg Urine Ketones Tr Urine Blood Neg Urine Nitrite Neg Urine Bilirubin Neg Urine Urobilinogen 2.0 Ur Leukocyte Esterase Neg Urine WBC (Auto) 2.0 Urine RBC (Auto) 2.0 Hyaline Casts 1 Urine Mucus Few Salicylates Urine Opiates Screen Negative Urine Methadone Screen Negative Acetaminophen Ur Barbiturates Screen Negative Ur Phencyclidine Scrn Negative Ur Amphetamines Screen Negative U Benzodiazepines Scrn Negative Urine Cocaine Screen Positive U Marijuana (THC) Screen Negative Drugs of Abuse Note Disclamer Plasma/Serum Alcohol 06/20/21 06/20/21 06/20/21 07:29 07:29 07:29 WBC RBC Hgb Hct MCV MCH MCHC RDW Plt Count Lymph % (Auto) Sharp % (Auto) Eos % (Auto) Baso % (Auto) Lymph # (Auto) Sharp # (Auto) Eos # (Auto) Baso # (Auto) Seg Neutrophils % Seg Neutrophils # Sodium 136 L Potassium 4.1 Chloride 103.2 Carbon Dioxide 23 Anion Gap 14 BUN 12 Creatinine 1.1 Estimated GFR > 60 BUN/Creatinine Ratio 11 Glucose 92 Calcium 9.4 Total Bilirubin 0.60 AST 15 ALT 9 Alkaline Phosphatase 104 Total Protein 7.8 Albumin 4.1 Albumin/Globulin Ratio 1.1 Urine Color Urine Turbidity Urine pH Ur Specific [place] Urine Protein Urine Glucose (UA) Urine Ketones Urine Blood Urine Nitrite Urine Bilirubin Urine Urobilinogen Ur Leukocyte Esterase Urine WBC (Auto) Urine RBC (Auto) Hyaline Casts Urine Mucus Salicylates < 0.3 L Urine Opiates Screen Urine Methadone Screen Acetaminophen 5.0 L Ur Barbiturates Screen Ur Phencyclidine Scrn Ur Amphetamines Screen U Benzodiazepines Scrn Urine Cocaine Screen U Marijuana (THC) Screen Drugs of Abuse Note Plasma/Serum Alcohol 06/20/21 07:29 WBC RBC Hgb Hct MCV MCH MCHC RDW Plt Count Lymph % (Auto) Sharp % (Auto) Eos % (Auto) Baso % (Auto) Lymph # (Auto) Sharp # (Auto) Eos # (Auto) Baso # (Auto) Seg Neutrophils % Seg Neutrophils # Sodium Potassium Chloride Carbon Dioxide Anion Gap BUN Creatinine Estimated GFR BUN/Creatinine Ratio Glucose Calcium Total Bilirubin AST ALT Alkaline Phosphatase Total Protein Albumin Albumin/Globulin Ratio Urine Color Urine Turbidity Urine pH Ur Specific [place] Urine Protein Urine Glucose (UA) Urine Ketones Urine Blood Urine Nitrite Urine Bilirubin Urine Urobilinogen Ur Leukocyte Esterase Urine WBC (Auto) Urine RBC (Auto) Hyaline Casts Urine Mucus Salicylates Urine Opiates Screen Urine Methadone Screen Acetaminophen Ur Barbiturates Screen Ur Phencyclidine Scrn Ur Amphetamines Screen U Benzodiazepines Scrn Urine Cocaine Screen U Marijuana (THC) Screen Drugs of Abuse Note Plasma/Serum Alcohol < 0.01 - Differential Diagnosis Suicidal ideation Critical care attestation.: If time is entered above; I have spent that time in minutes in the direct care of this critically ill patient, excluding procedure time. ED Disposition Clinical Impression: Suicidal ideation Disposition: [address] [place] [address] Is pt being admited?: No Does the pt Need Aspirin: No Condition: Stable Referrals: PRIMARY CARE,MD [Primary Care Provider] - 3-5 Days
[2021-06-20 07:54] LABS: Basophils # (Auto) 0.1 K/mm3 (0.0-0.1); Basophils % (Auto) 0.6 % (0.0-1.8); Eosinophils # (Auto) 0.2 K/mm3 (0.0-0.4); Eosinophils % (Auto) 2.2 % (0.0-4.3); Hematocrit 43.1 % (35.5-45.6); Hemoglobin 14.4 gm/dl (11.8-15.2); Lymphocytes # (Auto) 2.2 K/mm3 (1.2-5.4); Lymphocytes % (Auto) 24.6 % (13.4-35.0); Mean Corpuscular HGB Conc 33 % (32-34); Mean Corpuscular Volume 106 fl (84-94); Monocytes # (Auto) 0.8 K/mm3 (0.0-0.8); Monocytes % (Auto) 9.1 % (0.0-7.3); Platelet Count 298 K/mm3 (140-440); Red Blood Count 4.08 M/mm3 (3.65-5.03)
[2021-06-20 07:56] LABS: Amphetamine Screen,Urine Negative; Benzodiazepines Screen,Urine Negative; Cannabinoid Screen,Urine Negative; Methadone Screen,Urine Negative; Opiate Screen,Urine Negative
[2021-06-20 07:57] LABS: Bilirubin,Urine NEG (Negative); Blood,Urine NEG (Negative); Color,Urine Yellow (Yellow); Hyaline Casts,Urine 1 /LPF; Mucus,Urine FEW /HPF
[2021-06-20 08:09] LABS: Cocaine Screen,Urine Positive
[2021-06-20 08:15] LABS: Alanine Aminotransferase 9 units/L (7-56); Albumin 4.1 g/dL (3.9-5); BUN/Creatinine Ratio 11; Blood Urea Nitrogen 12 mg/dL (9-20); Calcium 9.4 mg/dL (8.4-10.2); Hemolysis Index 17
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
[2021-06-20] MEDS ORDERED: QUEtiapine 25 MG TAB PO SCH (11:00)
[2021-06-20] MEDS ORDERED: FLUoxetine 10 MG TAB PO SCH (11:00)
[2021-06-20] MEDS ORDERED: ACETAMINOPHEN 325 MG TAB PO ONE (17:32)
[2021-06-20 21:33] VITALS: BP 120/60
[2021-06-20] MEDS ORDERED: traZODone 50 MG TAB PO SCH (22:00)
== END 2021-06-20 21:30 ==
LOC: ED 05:28
DX: R45.851 Suicidal ideations (principal); F31.9 Bipolar disorder, unspecified; F20.9 Schizophrenia, unspecified; Z98.890 Other specified postprocedural states; F17.200 Nicotine dependence, unspecified, uncomplicated; Z20.822 Contact with and (suspected) exposure to COVID-19
CPT/HCPCS: 36415; 80053; 80307; 81001; 85025; 99285; U0003; 80320; G0480

== ENCOUNTER 2021-11-16 15:30 | Emergency (ER) | payer MEDICARE ==
[2021-11-16] MEDS ORDERED: amLODIPine 5 MG TAB PO ONE (21:07)
[2021-11-16 21:41] VITALS: BP 190/95
--- NOTE | 2021-11-16 21:47 | Emergency Department Report ---
ED General Adult HPI - General Chief complaint: Medical Clearance Stated complaint: HIGH BP Time Seen by Provider: 11/16/21 20:46 Source: EMS Mode of arrival: Ambulatory Limitations: No Limitations - History of Present Illness Initial comments: Patient is 66-year-old male with history of hypertension SI patient is actually inpatient abdomen with for psychiatric evaluation and treatment. Patient states he did not take his high blood pressure medication today his blood pressure was high on check-in at 161/100. Patient denies symptoms today. There is no dizziness, headache, lightheadedness, chest pain, no nausea vomiting, no diaphoresis. No fevers or chills. No chest pain. Patient walked from [place] to emergency department apartment approximately 1/4 mile without symptoms. Patient tolerating p.o. intake. Patient denies symptoms at this time. Gait is steady. Patient denies other symptoms. - Related Data Home Medications Medication Instructions Recorded Confirmed Last Taken Lisinopril [Zestril] 10 mg PO QDAY 06/17/19 06/18/19 Unknown Previous Rx's Medication Instructions Recorded Last Taken Type Benztropine [Cogentin] 1 mg PO QDAY #30 06/22/19 Unknown Rx Citalopram [Celexa] 40 mg PO QDAY #30 06/22/19 Unknown Rx Mirtazapine [Remeron 15mg TAB] 7.5 mg PO QHS #30 tablet 06/22/19 Unknown Rx Prazosin 1 mg PO QHS #30 capsule 06/22/19 Unknown Rx QUEtiapine [SEROquel] 300 mg PO QHS #30 06/22/19 Unknown Rx risperiDONE [RisperDAL] 2 mg PO BID #30 06/22/19 Unknown Rx Allergies Allergy/AdvReac Type Severity Reaction Status Date / Time No Known Allergies Allergy Verified 06/20/21 05:35 ED Review of Systems ROS: Stated complaint: HIGH BP Other details as noted in HPI Constitutional: denies: chills, fever Eyes: denies: eye pain, eye discharge, vision change ENT: denies: ear pain, throat pain Respiratory: denies: cough, shortness of breath, wheezing Cardiovascular: denies: chest pain, palpitations Endocrine: no symptoms reported Gastrointestinal: denies: abdominal pain, nausea, diarrhea Genitourinary: denies: urgency, dysuria Musculoskeletal: denies: back pain, joint swelling, arthralgia Skin: denies: rash, lesions Neurological: denies: headache, weakness, paresthesias, vertigo Psychiatric: denies: anxiety, depression, homicidal thoughts, suicidal thoughts Hematological/Lymphatic: denies: easy bleeding, easy bruising ED Past Medical Hx - Past Medical History Previous Medical History?: Yes Hx Hypertension: Yes Hx Renal Disease: No Hx Arthritis: No Hx Seizures: No Hx Psychiatric Treatment: Yes (bipolar, schizophrenia) Hx Dementia: No - Surgical History Past Surgical History?: Yes Hx Cholecystectomy: No Hx Appendectomy: No Additional Surgical History: foot surgery. neck surgery - Social History Smoking Status: Current Every Day Smoker (1 pack/day) Substance Use Type: Alcohol (Occasional), Cocaine (Crack) - Medications Home Medications: Home Medications Medication Instructions Recorded Confirmed Last Taken Type Lisinopril [Zestril] 10 mg PO QDAY 06/17/19 06/18/19 Unknown History Benztropine [Cogentin] 1 mg PO QDAY #30 06/22/19 Unknown Rx Citalopram [Celexa] 40 mg PO QDAY #30 06/22/19 Unknown Rx Mirtazapine [Remeron 15mg TAB] 7.5 mg PO QHS #30 tablet 06/22/19 Unknown Rx Prazosin 1 mg PO QHS #30 capsule 06/22/19 Unknown Rx QUEtiapine [SEROquel] 300 mg PO QHS #30 06/22/19 Unknown Rx risperiDONE [RisperDAL] 2 mg PO BID #30 06/22/19 Unknown Rx ED Physical Exam - General Limitations: No Limitations General appearance: alert, in no apparent distress - Head Head exam: Present: normocephalic, normal inspection - Eye Eye exam: Present: normal appearance, PERRL, EOMI Pupils: Present: normal accommodation - ENT ENT exam: Present: mucous membranes moist - Neck Neck exam: Present: normal inspection, full ROM. Absent: tenderness, lymphadenopathy - Respiratory Respiratory exam: Present: normal lung sounds bilaterally. Absent: respiratory distress, wheezes, chest wall tenderness - Cardiovascular Cardiovascular Exam: Present: regular rate, normal rhythm, normal heart sounds. Absent: systolic murmur, diastolic murmur, rubs, gallop - GI/Abdominal GI/Abdominal exam: Present: soft, normal bowel sounds. Absent: distended, tenderness - Rectal Rectal exam: Present: deferred - Extremities Exam Extremities exam: Present: normal inspection, full ROM, normal capillary refill - Back Exam Back exam: Present: normal inspection, full ROM. Absent: CVA tenderness (R), CVA tenderness (L) - Neurological Exam Neurological exam: Present: alert, oriented X3, CN II-XII intact, normal gait - Expanded Neurological Exam Expanded Patient oriented to: Present: person, place, time Speech: Present: fluid speech Cranial nerves: EOM's Intact: Normal Motor strength exam: RUE: 5, LUE: 5, RLE: 5, LLE: 5 Best Eye Response (Ronco): (4) open spontaneously Best Motor Response (Ronco): (6) obeys commands Best Verbal Response (Lori): (5) oriented Ronco Total: 15 - Psychiatric Psychiatric exam: Present: normal affect, normal mood. Absent: agitated, homicidal ideation, suicidal ideation - Skin Skin exam: Present: warm, dry, intact, normal color. Absent: rash ED Course Vital Signs 11/16/21 11/16/21 15:40 21:40 Temperature 98.6 F Pulse Rate 88 88 Respiratory 18 12 Rate Blood Pressure 190/95 Blood Pressure 160/96 190/95 [Left] O2 Sat by Pulse 97 100 Oximetry ED Medical Decision Making - Medical Decision Making Patient appears well-hydrated well-nourished nontoxic there is no chest pain no lightheadedness no dizziness. There is been no fever no chills no cough no nausea vomiting no chest pain. Patient is alert oriented x3 amatory with steady gait with no acute distress. Patient will be DC to self at this time patient advised to take lisinopril as prescribed daily by his primary care doctor. Patient will follow-up with his primary care doctor in 1 to 2 days. Patient is cleared to return to [place] as noted. Critical care attestation.: If time is entered above; I have spent that time in minutes in the direct care of this critically ill patient, excluding procedure time. ED Disposition Clinical Impression: Essential hypertension Disposition: HOME / SELF CARE / HOMELESS Is pt being admited?: No Does the pt Need Aspirin: No Condition: Stable Instructions: Hypertension (ED), DASH Eating Plan, Hypertension, Adult, Lisinopril tablets Additional Instructions: Take all medications as prescribed by your doctor. Follow-up with your primary care doctor in 1 to 2 days. Return to emergency department if you should develop symptoms. Referrals: YAAKOV JIN MD [Staff Physician] - 3-5 Days Forms: Work/School Release Form(ED) Time of Disposition: 21:52
== END 2021-11-16 22:23 | disposition home or self-care (01) ==
LOC: ED 15:30
DX: I10 Essential (primary) hypertension (principal); F31.9 Bipolar disorder, unspecified; F17.200 Nicotine dependence, unspecified, uncomplicated; Z79.899 Other long term (current) drug therapy
CPT/HCPCS: 99282